=== PATIENT | female | born 1990 | race Caucasian/White ===

== ENCOUNTER 2016-04-30 05:50 | Inpatient (IN) | payer OTHER ==
[2016-04-30] MEDS ORDERED: OXYTOCIN 30 UNITS/500 ML NS 30 UNIT in SALINE 1 500ML.BAG IV SCH ×2 (06:10→14:30)
[2016-04-30] MEDS ORDERED: OXYTOCIN 10 UNIT/ML 1 ML VIAL IM PRN (06:10)
[2016-04-30] MEDS ORDERED: LIDOCAINE 1% (PF) 10 MG/ML (30 ML SDV) SQ PRN (06:10)
[2016-04-30] MEDS ORDERED: CARBOPROST TROMETHAMINE 250 MCG/ML 1 ML AMP IM PRN (06:10)
[2016-04-30] MEDS ORDERED: METHYLERGONOVINE 0.2 MG/ML 1 ML AMP IM PRN (06:10)
[2016-04-30] MEDS ORDERED: TERBUTALINE 1 MG/ML VIAL SQ PRN (06:10)
[2016-04-30 06:22] LABS: Basophils % (A) 1 %; CH 29.8; CHCM 33.4; Eosinophils # (A) 0.1 k/uL (0-0.7); Eosinophils % (A) 2 %; HCT 28.3 % (34.0-46.0); HDW 3.66; HGB 9.4 gm/dL (11.4-16.0); Hypochromasia Slight; Luc # (Auto) 0.18; Luc % (Auto) 3; Lymphocytes # (A) 1.2 k/uL (1.0-4.8); Lymphocytes % (A) 20 %; MCH 29.7 pg (25.0-35.0); MCHC 33.2 g/dL (31.0-37.0); Monocytes # (A) 0.3 k/uL (0-1.0); Monocytes % (A) 6 %; Neutrophils % (A) 69 %; Poikilocytosis Slight; RBC 3.16 m/uL (3.80-5.40); RDW 14.9 % (11.5-15.5); WBC 5.8 k/uL (3.8-10.6); WBC (Perox) 6.07
[2016-04-30 06:26] VITALS: BMI 29.8
[2016-04-30 06:26] LABS: MCV 89.6 fL (80.0-100.0)
[2016-04-30] MEDS: LACTATED RINGERS 1,000 ML IV SCH ×3 (06:41→13:08)
[2016-04-30] MEDS ORDERED: BUTORPHANOL 1 MG/ML 1 ML VIAL IV PRN (08:52)
[2016-04-30] MEDS ORDERED: fentaNYL (PF) 50 MCG/ML 5 ML AMP ONE (12:38)
[2016-04-30] MEDS ORDERED: BUPIVACAINE (PF) 0.25% 30 ML VIAL ONE (12:38)
[2016-04-30] MEDS ORDERED: SODIUM CHLORIDE 0.9% 100 ML BAG ONE (12:38)
[2016-04-30] MEDS ORDERED: ZOLPIDEM 5 MG TAB PO PRN (14:18)
[2016-04-30] MEDS ORDERED: SIMETHICONE 80 MG CHEWABLE PO PRN (14:18)
[2016-04-30] MEDS ORDERED: HYDROCORTISONE 2.5% RECTAL CREAM 30 GM TUBE RECTAL PRN (14:18)
[2016-04-30] MEDS ORDERED: diphenhydrAMINE 25 MG CAP PO PRN (14:18)
[2016-04-30] MEDS ORDERED: diphenhydrAMINE 50 MG CAP PO PRN (14:18)
[2016-04-30] MEDS ORDERED: LANOLIN CREAM 5 GM TUBE TOPICAL PRN (14:18)
[2016-04-30] MEDS ORDERED: Acetaminophen-Codeine 300-30mg TAB PO PRN ×2 (14:18)
[2016-04-30] MEDS ORDERED: diphenhydrAMINE 50 MG/ML 1 ML VIAL IVP PRN ×2 (14:18)
[2016-04-30] MEDS ORDERED: WITCH HAZEL 1 EACH MED..PAD TOPICAL PRN (14:18)
[2016-04-30] MEDS ORDERED: BENZOCAINE/MENTHOL SPRAY 1 GM/SPRAY AEROSOL TOPICAL PRN (14:18)
[2016-04-30] MEDS: IBUPROFEN 600 MG TAB PO PRN (16:45)
[2016-04-30] MEDS: SENNOSIDES-DOCUSATE SODIUM 1 EACH TAB PO SCH (19:45)
[2016-04-30] MEDS: ACETAMINOPHEN TAB 325 MG TAB PO PRN (21:14)
[2016-05-01] MEDS: IBUPROFEN 600 MG TAB PO PRN ×3 (00:05→13:33)
[2016-05-01] MEDS: ACETAMINOPHEN TAB 325 MG TAB PO PRN (04:10)
--- NOTE | 2016-05-01 07:50 | P.DS ---
Providers Date of admission: 04/30/16 05:50 Expected date of discharge: 05/01/16 Attending physician: Patricia Ervin Primary care physician: Stated None - Discharge Diagnosis(es) (1) Status post vacuum-assisted vaginal delivery Current Visit: Yes Status: Acute Hospital Course: Patient presented for induction of labor. She underwent a vacuum assisted vaginal delivery. Her pp course was uncomplicated and she will be discharged home PPD #1 in stable condition to follow up with me in 6 weeks. Plan - Discharge Summary New Discharge Prescriptions: Ibuprofen [Motrin] 600 mg PO Q6HR PRN #30 tab PRN Reason: Mild Pain Or Fever >= 100.5 Discharge Medication List Ibuprofen [Motrin] 600 mg PO Q6HR PRN #30 tab 05/01/16 [Rx] Follow up Appointment(s)/Referral(s): Patricia Ervin DO [Doctor of Osteopathic Medicine] - 6 Weeks Discharge Disposition: HOME SELF-CARE
[2016-05-01] MEDS: SENNOSIDES-DOCUSATE SODIUM 1 EACH TAB PO SCH (08:21)
[2016-05-01 12:01] VITALS: BP 119/55; PULSE 73; RESP 16; TEMP 98.1
--- NOTE | 2016-05-14 08:53 | P.HPOB ---
History of Present Illness H&P Date: 05/28/16 Chief Complaint: Induction of labor 26-year-old presents at 39 weeks and 2 days for induction of labor. Her cervix is 2 cm dilated, 70% effaced, -2 station. She is oliverio irregularly. heart tones 130 540 with moderate variability and reactive. Review of Systems All systems: negative Constitutional: Denies chills, Denies fever Eyes: denies blurred vision, denies pain Ears, nose, mouth and throat: Denies headache, Denies sore throat Cardiovascular: Denies chest pain, Denies shortness of breath Respiratory: Denies cough Gastrointestinal: Denies abdominal pain, Denies diarrhea, Denies nausea, Denies vomiting Genitourinary: Denies dysuria, Denies hematuria Musculoskeletal: Denies myalgias Integumentary: Denies pruritus, Denies rash Neurological: Denies numbness, Denies weakness Psychiatric: Denies anxiety, Denies depression Endocrine: Denies fatigue, Denies weight change Past Medical History Past Medical History: No Reported History History of Any Multi-Drug Resistant Organisms: None Reported Additional Past Surgical History / Comment(s): SKIN GRAFT RH, D&C Past Anesthesia/Blood Transfusion Reactions: No Reported Reaction Past Psychological History: No Psychological Hx Reported Smoking Status: Current every day smoker Past Alcohol Use History: None Reported Past Drug Use History: None Reported Additional Drug Use History / Comment(s): pt states she smokes 5 cigarettes a day - Past Family History Father Family Medical History: No Reported History Medications and Allergies Allergies Allergy/AdvReac Type Severity Reaction Status Date / Time codeine Allergy Rash/Hives Verified 04/30/16 06:09 Exam Osteopathic Statement: *. No significant issues noted on an osteopathic structural exam other than those noted in the History and Physical/Consult. Heart: Regular rate and rhythm Lungs: Clear to auscultation bilaterally Abdomen: Soft, nontender Extremities: Negative Homans sign Results Result Diagrams: 04/30/16 06:15 Assessment and Plan (1) Normal labor Status: Acute Plan: 1. Amniotomy and Pitocin to induce labor. 2. Anticipate normal vaginal delivery
--- NOTE | 2016-05-14 08:56 | P.PROBDLV ---
Vaginal Delivery Note - . Vaginal Delivery Note: 26-year-old presented at 39 weeks 2 days for induction of labor. Her cervix was 2 cm dilated, 70% effaced, -2 station. She is oliverio irregularly. heart tones 100 4145 with moderate variability and reactive. Amniotomy was performed at 8 AM, clear fluid noted. Pitocin was also started. She progressed to complete at 1352 and started to push. heart tones went down to the 60s. Position of the baby's head was verified and vacuum was applied after informed consent was obtained. There is one pull and no pop offs. Infant's head delivered OA, anterior shoulder delivered gentle downward traction followed by posterior shoulder and rest of body at 1402. was placed on mother's abdomen, Apgars 9, 9, weight 7 pounds 4.4 ounces. Placenta delivered spontaneously, intact with three-vessel cord at 1404. Vagina, cervix, and perineum were inspected. No lacerations noted. Estimated blood loss 150 mL.
--- NOTE | 2016-05-18 13:13 | CDI ---
In responding to this query, please exercise your independent professional judgment. The [facility] Coding Staff and Clinical Documentation Specialists appreciate your assistance in clarifying documentation, maintaining compliance with coding guidelines, accurately documenting patients condition and capturing severity of illness. The fact that a question is asked does not imply that any particular answer is desired or expected. Communication forms are a method of clarifying documentation and are not made part of the Legal Health Record. Thank you in advance for your clarification. Last Revision, January 2015 Elana Johnson [address] [facility] [place] [address] Documentation Clarification Form Date: 05/18/2016 1:05:00 PM From: Saima Anusha Phone: Admit Date: 04/30/2016 5:50:00 AM Patient Name: Keara Cast Visit Number: [id number] Discharge Date: Dr. Patricia Ervin Delivery using a vacuum is documented in the delivery note and in the discharge summary. Patient history/risk factors: Patient presented at 39 weeks and 2 days for induction of labor. Clinical Indicators: Cervix is 2 cm dilated, 70% effaced, -2 station and oliverio irregularly. In your professional opinion, can you please clarify the reason that vacuum assistance was needed? heart tones were decelerating and the baby needed to be delivered quickly. The head was at +2 station and it was deemed appropriate to use a vacuum for an operative delivery. Please document in your progress notes and discharge summary in order to capture severity of illness and risk of mortality. Include clinical findings that support your diagnosis. FYI: Press F11 to launch patient chart. Place X here if this finding has no clinical significance, is not applicable or if you are not able to provide any additional documentation. MTDD
--- NOTE | 2016-06-09 11:28 | CDI ---
In responding to this query, please exercise your independent professional judgment. The [facility] Coding Staff and Clinical Documentation Specialists appreciate your assistance in clarifying documentation, maintaining compliance with coding guidelines, accurately documenting patients condition and capturing severity of illness. The fact that a question is asked does not imply that any particular answer is desired or expected. Communication forms are a method of clarifying documentation and are not made part of the Legal Health Record. Thank you in advance for your clarification. Last Revision, January 2015 Elanajett Johnson [address] [facility] [place] [address] Documentation Clarification Form Date: 05/18/2016 1:05:00 PM From: Saima Anusha Phone: Admit Date: 04/30/2016 5:50:00 AM Patient Name: Keara Cast Visit Number: [id number] Discharge Date: Dr. Patricia Ervin Thank you for signing the first query. Please document a response prior to signing the query. Delivery using a vacuum is documented in the delivery note and in the discharge summary. Patient history/risk factors: Patient presented at 39 weeks and 2 days for induction of labor. Clinical Indicators: Cervix is 2 cm dilated, 70% effaced, -2 station and oliverio irregularly. In your professional opinion, can you please clarify the reason that vacuum assistance was needed? Other Unable to determine Please document in your progress notes and discharge summary in order to capture severity of illness and risk of mortality. Include clinical findings that support your diagnosis. FYI: Press F11 to launch patient chart. Place X here if this finding has no clinical significance, is not applicable or if you are not able to provide any additional documentation. LIZ
--- NOTE | 2016-06-10 08:13 | CDI ---
In responding to this query, please exercise your independent professional judgment. The [facility] Coding Staff and Clinical Documentation Specialists appreciate your assistance in clarifying documentation, maintaining compliance with coding guidelines, accurately documenting patients condition and capturing severity of illness. The fact that a question is asked does not imply that any particular answer is desired or expected. Communication forms are a method of clarifying documentation and are not made part of the Legal Health Record. Thank you in advance for your clarification. Last Revision, January 2015 Elana Johnson [address] [facility] [place] [address] Documentation Clarification Form Date: 05/18/2016 1:05:00 PM From: Saima Anusha Phone: Admit Date: 04/30/2016 5:50:00 AM Patient Name: Keara Cast Visit Number: [id number] Discharge Date: Dr. Patricia Ervin Delivery using a vacuum is documented in the delivery note and in the discharge summary. Patient history/risk factors: Patient presented at 39 weeks and 2 days for induction of labor. Clinical Indicators: Cervix is 2 cm dilated, 70% effaced, -2 station and oliverio irregularly. In your professional opinion, can you please clarify the reason that vacuum assistance was needed? Other- Its clearly documented in the delivery note that the heart tones dropped down to the 60's. The baby was showing signs of distress, so a vacuum was used to assist with delivery. Unable to determine Please document in your progress notes and discharge summary in order to capture severity of illness and risk of mortality. Include clinical findings that support your diagnosis. FYI: Press F11 to launch patient chart. Place X here if this finding has no clinical significance, is not applicable or if you are not able to provide any additional documentation. LIZ
== END 2016-05-01 14:35 | disposition home or self-care (01) | DRG 775 ==
LOC: 4FBP 05:50
PROVIDERS: ADMIT Obstetrics & Gynecology; ATTEND Obstetrics & Gynecology
PROC: 10D07Z6 Extraction of Products of Conception, Vacuum, Via Natural or Artificial Opening (ICD-10-PCS; principal; 2016-04-30)
PROC: 3E033VJ Introduction of Other Hormone into Peripheral Vein, Percutaneous Approach (ICD-10-PCS; 2016-04-30)
PROC: 10907ZC Drainage of Amniotic Fluid, Therapeutic from Products of Conception, Via Natural or Artificial Opening (ICD-10-PCS; 2016-04-30)
DX: O99.334 Smoking (tobacco) complicating childbirth (principal); F17.200 Nicotine dependence, unspecified, uncomplicated; O76 Abnormality in fetal heart rate and rhythm complicating labor and delivery; Z37.0 Single live birth; Z3A.39 39 weeks gestation of pregnancy
CPT/HCPCS: 85025; 88307

== ENCOUNTER 2016-11-24 16:40 | Emergency (ER) | payer OTHER ==
[2016-11-24] MEDS ORDERED: ONDANSETRON 4 MG/2 ML VIAL IVP STA (17:26)
[2016-11-24] MEDS ORDERED: SODIUM CHLORIDE 0.9% 500 ML IV STA (17:26)
[2016-11-24] MEDS ORDERED: RX INFO: IV CONTRAST WAS GIVEN 1 EACH MISC MISCELLANE PRN (17:26)
[2016-11-24] MEDS ORDERED: HYDROcodone/APAP 5-325MG 1 EACH TAB PO STA (17:27)
--- NOTE | 2016-11-24 17:31 | ED ---
Abdominal Pain HPI - General Chief Complaint: Abdominal Pain Stated Complaint: kidney pain Time Seen by Provider: 11/24/16 17:20 Source: patient, RN notes reviewed Mode of arrival: ambulatory Limitations: no limitations - History of Present Illness Initial Comments: This a 26-year-old female presents emergency Department chief complaint of right flank pain. Patient states she was sitting in the tub with her daughter in which she slipped falling onto her right side. Patient complains of right- sided pain from her right lower ribs to her hip on the right. Patient states that it is severe pain and radiates across her abdomen. Patient feels nauseated from the pain. The patient denies fever, chills, diarrhea, constipation, chest pain, shortness breath, hematuria. Patient states she is able to ambulate with no difficulty. Patient denies any head injury no LOC. - Related Data Previous Rx's Medication Instructions Recorded Hydrocodone/Acetaminophen [[place] 1 tab PO Q6HR PRN #15 tab 11/24/16 5-325] Allergies Allergy/AdvReac Type Severity Reaction Status Date / Time codeine Allergy Rash/Hives Verified 11/24/16 17:30 Review of Systems ROS Statement: Those systems with pertinent positive or pertinent negative responses have been documented in the HPI. ROS Other: All systems not noted in ROS Statement are negative. Past Medical History Past Medical History: No Reported History History of Any Multi-Drug Resistant Organisms: None Reported Additional Past Surgical History / Comment(s): SKIN GRAFT RH, D&C Past Anesthesia/Blood Transfusion Reactions: No Reported Reaction Past Psychological History: No Psychological Hx Reported Smoking Status: Current every day smoker Past Alcohol Use History: None Reported Past Drug Use History: None Reported - Past Family History Father Family Medical History: No Reported History General Exam Limitations: no limitations General appearance: alert, in no apparent distress Head exam: Present: atraumatic, normocephalic, normal inspection Eye exam: Present: normal appearance, PERRL, EOMI. Absent: scleral icterus, conjunctival injection, periorbital swelling Neck exam: Present: normal inspection, full ROM. Absent: tenderness, meningismus, lymphadenopathy Respiratory exam: Present: normal lung sounds bilaterally, chest wall tenderness (Right lower ribs). Absent: respiratory distress, wheezes, rales, rhonchi, stridor Cardiovascular Exam: Present: regular rate, normal rhythm, normal heart sounds. Absent: systolic murmur, diastolic murmur, rubs, gallop, clicks GI/Abdominal exam: Present: soft, tenderness (Moderate right-sided abdominal tenderness), normal bowel sounds. Absent: distended, guarding, rebound, rigid Back exam: Present: full ROM, CVA tenderness (R). Absent: tenderness, CVA tenderness (L) Neurological exam: Present: alert, oriented X3, CN II-XII intact, reflexes normal. Absent: motor sensory deficit Skin exam: Present: warm, dry, intact, normal color. Absent: rash Course Vital Signs 11/24/16 17:06 Temperature 97.3 F L Pulse Rate 68 Respiratory 17 Rate Blood Pressure 108/68 O2 Sat by Pulse 100 Oximetry Medical Decision Making - Medical Decision Making 26-year-old female presented emergency department for right-sided pain after a fall. Patient's CT does not show any acute organ or internal damage. Patient most likely just has a contusion. Patient be given pain medication and advised follow-up within 24 hours for recheck return parameters were discussed. - Lab Data Result diagrams: 11/24/16 17:45 11/24/16 17:45 Lab Results 11/24/16 11/24/16 11/24/16 Range/Units 17:45 17:45 17:45 WBC 5.8 (3.8-10.6) k/uL RBC 4.23 (3.80-5.40) m/uL Hgb 14.3 (11.4-16.0) gm/dL Hct 39.8 (34.0-46.0) % MCV 94.0 (80.0-100.0) fL MCH 33.7 (25.0-35.0) pg MCHC 35.8 (31.0-37.0) g/dL RDW 13.2 (11.5-15.5) % Plt Count 183 (150-450) k/uL Neutrophils % 49 % Lymphocytes % 36 % Monocytes % 6 % Eosinophils % 5 % Basophils % 1 % Neutrophils # 2.8 (1.3-7.7) k/uL Lymphocytes # 2.1 (1.0-4.8) k/uL Monocytes # 0.4 (0-1.0) k/uL Eosinophils # 0.3 (0-0.7) k/uL Basophils # 0.1 (0-0.2) k/uL PT (9.0-12.0) sec INR (<1.2) APTT (22.0-30.0) sec Sodium 140 (137-145) mmol/L Potassium 4.3 (3.5-5.1) mmol/L Chloride 110 H (98-107) mmol/L Carbon Dioxide 23 (22-30) mmol/L Anion Gap 7 mmol/L BUN 10 (7-17) mg/dL Creatinine 0.70 (0.52-1.04) mg/dL Est GFR (MDRD) Af Amer >60 (>60 ml/min/1.73 sqM) Est GFR (MDRD) Non-Af >60 (>60 ml/min/1.73 sqM) Glucose 77 (74-99) mg/dL Calcium 9.0 (8.4-10.2) mg/dL Total Bilirubin 0.3 (0.2-1.3) mg/dL AST 17 (14-36) U/L ALT 27 (9-52) U/L Alkaline Phosphatase 47 (38-126) U/L Total Protein 5.8 L (6.3-8.2) g/dL Albumin 3.7 (3.5-5.0) g/dL Amylase 60 (30-110) U/L Lipase 93 (23-300) U/L Urine Color Urine Appearance (Clear) Urine pH (5.0-8.0) Ur Specific [place] (1.001-1.035) Urine Protein (Negative) Urine Glucose (UA) (Negative) Urine Ketones (Negative) Urine Blood (Negative) Urine Nitrite (Negative) Urine Bilirubin (Negative) Urine Urobilinogen (<2.0) mg/dL Ur Leukocyte Esterase (Negative) Urine RBC (0-5) /hpf Ur Squamous Epith Cells (0-4) /hpf Amorphous Sediment (None) /hpf Urine Mucus (None) /hpf Urine HCG, Qual Not Detected (Not Detectd) 11/24/16 11/24/16 Range/Units 17:45 17:45 WBC (3.8-10.6) k/uL RBC (3.80-5.40) m/uL Hgb (11.4-16.0) gm/dL Hct (34.0-46.0) % MCV (80.0-100.0) fL MCH (25.0-35.0) pg MCHC (31.0-37.0) g/dL RDW (11.5-15.5) % Plt Count (150-450) k/uL Neutrophils % % Lymphocytes % % Monocytes % % Eosinophils % % Basophils % % Neutrophils # (1.3-7.7) k/uL Lymphocytes # (1.0-4.8) k/uL Monocytes # (0-1.0) k/uL Eosinophils # (0-0.7) k/uL Basophils # (0-0.2) k/uL PT 11.8 (9.0-12.0) sec INR 1.2 H (<1.2) APTT 25.1 (22.0-30.0) sec Sodium (137-145) mmol/L Potassium (3.5-5.1) mmol/L Chloride (98-107) mmol/L Carbon Dioxide (22-30) mmol/L Anion Gap mmol/L BUN (7-17) mg/dL Creatinine (0.52-1.04) mg/dL Est GFR (MDRD) Af Amer (>60 ml/min/1.73 sqM) Est GFR (MDRD) Non-Af (>60 ml/min/1.73 sqM) Glucose (74-99) mg/dL Calcium (8.4-10.2) mg/dL Total Bilirubin (0.2-1.3) mg/dL AST (14-36) U/L ALT (9-52) U/L Alkaline Phosphatase (38-126) U/L Total Protein (6.3-8.2) g/dL Albumin (3.5-5.0) g/dL Amylase (30-110) U/L Lipase (23-300) U/L Urine Color Yellow Urine Appearance Cloudy H (Clear) Urine pH 6.5 (5.0-8.0) Ur Specific [place] 1.014 (1.001-1.035) Urine Protein Negative (Negative) Urine Glucose (UA) Negative (Negative) Urine Ketones Negative (Negative) Urine Blood Negative (Negative) Urine Nitrite Negative (Negative) Urine Bilirubin Negative (Negative) Urine Urobilinogen <2.0 (<2.0) mg/dL Ur Leukocyte Esterase Negative (Negative) Urine RBC 1 (0-5) /hpf Ur Squamous Epith Cells 3 (0-4) /hpf Amorphous Sediment Rare H (None) /hpf Urine Mucus Rare H (None) /hpf Urine HCG, Qual (Not Detectd) Disposition Clinical Impression: Abdominal wall contusion, Fall Disposition: HOME SELF-CARE Condition: Stable Instructions: Contusion in Adults (ED) Additional Instructions: Please return to the Emergency Department if symptoms worsen or any other concerns. Prescriptions: Hydrocodone/Acetaminophen [[place] 5-325] 1 tab PO Q6HR PRN #15 tab PRN Reason: Pain Referrals: Kirit Duckworth MD [Primary Care Provider] - 1-2 days Time of Disposition: 19:15
[2016-11-24 18:03] LABS: Basophils # (A) 0.1 k/uL (0-0.2); Basophils % (A) 1 %; CH 32.9; Eosinophils # (A) 0.3 k/uL (0-0.7); Eosinophils % (A) 5 %; HCT 39.8 % (34.0-46.0); HDW 2.53; HGB 14.3 gm/dL (11.4-16.0); Luc # (Auto) 0.17; Luc % (Auto) 3; Lymphocytes # (A) 2.1 k/uL (1.0-4.8); Lymphocytes % (A) 36 %; MCH 33.7 pg (25.0-35.0); MCHC 35.8 g/dL (31.0-37.0); Mean Platelet Volume 8.4; Monocytes # (A) 0.4 k/uL (0-1.0); Monocytes % (A) 6 %; Neutrophils # (A) 2.8 k/uL (1.3-7.7); Neutrophils % (A) 49 %; RBC 4.23 m/uL (3.80-5.40); RDW 13.2 % (11.5-15.5); WBC 5.8 k/uL (3.8-10.6); WBC (Perox) 5.97
[2016-11-24 18:06] LABS: Amorphous Sediment,Urine Rare /hpf; Appearance,Urine Cloudy (Clear); Bilirubin,Urine Negative (Negative); Glucose,Urine (UA) Negative (Negative); Ketones,Urine Negative (Negative); Leukocyte Esterase,Urine Negative (Negative); Mucus,Urine Rare /hpf; Nitrite,Urine Negative (Negative); PH, Urine 6.5 (5.0-8.0); Particle Count 6061; Protein,Urine Negative (Negative); RBC,Urine 1 /hpf (0-5); Specific Gravity,Urine 1.014 (1.001-1.035); Squamous Epithelial Cell,Urine 3 /hpf (0-4); UA Billing (MACRO vs. MICRO) MICRO; Urobilinogen,Urine <2.0 mg/dL (<2.0)
[2016-11-24 18:15] LABS: INR 1.2 (<1.2); Partial Thromboplastin Time 25.1 sec (22.0-30.0); Prothrombin Time 11.8 sec (9.0-12.0)
[2016-11-24 18:20] LABS: ALT 27 U/L (9-52); AST 17 U/L (14-36); Alkaline Phosphatase 47 U/L (38-126); Amylase 60 U/L (30-110); Anion Gap 7 mmol/L; Blood Urea Nitrogen 10 mg/dL (7-17); Carbon Dioxide 23 mmol/L (22-30); Chloride 110 mmol/L (98-107); Glucose 77 mg/dL (74-99); Non-African American GFR(MDRD) >60 (>60 ml/min/1.73 sqM); Potassium 4.3 mmol/L (3.5-5.1); Sodium 140 mmol/L (137-145); Total Bilirubin 0.3 mg/dL (0.2-1.3); Total Protein 5.8 g/dL (6.3-8.2)
--- NOTE | 2016-11-24 19:04 | CT ---
EXAMINATION TYPE: CT abdomen pelvis w con DATE OF EXAM: 11/24/2016 COMPARISON: NONE HISTORY: Right sided flank pain with painful and frequent urination CT DLP: 345.2 mGycm CONTRAST: CT scan of the abdomen and pelvis is performed without Oral Contrast and with IV Contrast, patient in jected with 100 mL of Omnipaque 300. FINDINGS: LUNG BASES-: No visible nodule. No infiltrate. LIVER/GB: No calcified gallstones. No space occupying hepatic lesion. Biliary tree is of normal ca liber. PANCREAS: No inflammation. No distinct mass. SPLEEN: No splenic enlargement. No lesion seen. ADRENALS: No nodule. No thickening. KIDNEYS/BLADDER: No hydronephrosis. No nephrolithiasis. No disctinct renal mass. Urinary bladder g rossly unremarkable. BOWEL: Normal appendix. Normal bowel caliber. No inflammation. GENITAL ORGANS: Trace free fluid within the pelvis. Cervical nabothian cyst noted. Uterus and ovarie s are otherwise unremarkable. LYMPH NODES: No greater than 1cm abdominal or pelvic lymph nodes are appreciated. AORTA: No significant abnormality. OSSEOUS STRUCTURES: No significant abnormality is seen. OTHER: No significant additional abnormality is seen. IMPRESSION: 1. No significant abnormality to account for the patient's symptoms. Trace free fluid within the pelv is.
[2016-11-24 19:34] VITALS: BP 111/54; PULSE 88; RESP 18; TEMP 97.6
== END 2016-11-24 19:45 | disposition home or self-care (01) ==
LOC: EC 16:40
DX: S30.1XXA Contusion of abdominal wall, initial encounter (principal); R07.81 Pleurodynia; M25.551 Pain in right hip; F17.200 Nicotine dependence, unspecified, uncomplicated; Z88.5 Allergy status to narcotic agent; W01.0XXA Fall on same level from slipping, tripping and stumbling without subsequent striking against object, initial encounter; Y92.89 Other specified places as the place of occurrence of the external cause
CPT/HCPCS: 36415; 80053; 82150; 83690; 85025; 85610; 85730; 81001; 81025; 87086; 74177; 99284; 96374; 96361 ×2; J2405; Q9967

== ENCOUNTER → 2017-09-30 | Outpatient (CLI) | payer OTHER ==
--- NOTE | 2017-10-01 07:24 | US ---
EXAMINATION TYPE: Transabdominal DATE OF EXAM: 06/08/17 COMPARISON: 10/22/2015 CLINICAL HISTORY: Z36 confirm dates. EXAM PERFORMED: Transabdominal (TA) EXAM MEASUREMENTS: GESTATIONAL AGE / DATING Physician Established: Not yet established EDC: Dates by LMP: 9 weeks/0 days) EDC: 05/05/2018 Dates by First Scan: No previous this is first scan Dates by Current Scan for: (9 weeks/4 days) EDC: 05/01/2018 MATERNAL ANATOMY Uterus: 12.2 x 5.7 x 7.8 cm Right Ovary: 2.4 x 2.3 x 2.2 cm Left Ovary: 2.8 x 2.1 x 2.6 cm Post CDS / Adnexa: wnl Presence of free fluid: wnl Presence of corpus luteal cyst: small left cyst 1.1 x0.7 x 0.7 cm Presence of subchorionic bleed: Yes, 6 mm on image 15 near the fundus GESTATION / SURVEY CRL: 2.5 cm 9weeks/2 days) MSD: 4.08 weeks/5 days) Yolk Sac (normal less than 6mm): 4mm Heart Rate: 143pm Rhythm: Normal IUP: Live IUP Date of LMP: 07/29/2017 Beta HcG (if available): na Incidental note of moderate amount of nondependent debris scattered throughout the urinary bladder. IMPRESSION: 1. Single live intrauterine with a calculated sonographic age of 9 weeks and 4 days with es timated date of delivery of 05/01/2018, concordant with menstrual age. Additionally there is a 6 mm ve ry small subchorionic hemorrhage near the uterine fundus. 2. Incidentally noted moderate amount of nondependent debris within the urinary bladder. Correlate wi th urinalysis to evaluate for urinary tract infection.
== END | disposition home or self-care (01) ==
LOC: RADUSWWP 16:12
PROVIDERS: ATTEND Obstetrics & Gynecology
DX: O20.8 Other hemorrhage in early pregnancy (principal); Z3A.09 9 weeks gestation of pregnancy
CPT/HCPCS: 76801

== ENCOUNTER 2018-04-15 08:42 | Inpatient (IN) | payer OTHER ==
[2018-04-15] MEDS ORDERED: TERBUTALINE 1 MG/ML VIAL SQ PRN (09:04)
[2018-04-15] MEDS ORDERED: METHYLERGONOVINE 0.2 MG/ML 1 ML AMP IM PRN (09:04)
[2018-04-15] MEDS ORDERED: CARBOPROST TROMETHAMINE 250 MCG/ML 1 ML AMP IM PRN (09:04)
[2018-04-15] MEDS ORDERED: OXYTOCIN 10 UNIT/ML 1 ML VIAL IM PRN (09:04)
[2018-04-15] MEDS ORDERED: LIDOCAINE 0.5% (PF) 5 MG/ML (50 ML SDV) SQ PRN (09:04)
[2018-04-15] MEDS ORDERED: BENZOCAINE 20 % GEL 15 GM TUBE MM PRN (09:30)
[2018-04-15] MEDS ORDERED: ACETAMINOPHEN IV (For NPO) 1,000 MG in EMPTY BAG 1 BAG IVPB STA (09:30)
[2018-04-15] MEDS: LACTATED RINGERS 1,000 ML IV SCH ×2 (09:35→10:15)
[2018-04-15 09:58] LABS: Basophils % (A) 0 %; Eosinophils # (A) 0.1 k/uL (0-0.7); Eosinophils % (A) 2 %; HCT 28.5 % (34.0-46.0); HGB 9.4 gm/dL (11.4-16.0); Lymphocytes % (A) 15 %; MCH 30.3 pg (25.0-35.0); MCV 91.8 fL (80.0-100.0); Mean Platelet Volume 7.5; Monocytes # (A) 0.4 k/uL (0-1.0); Monocytes % (A) 7 %; Neutrophils % (A) 74 %; Platelet Count 142 k/uL (150-450); RDW 15.4 % (11.5-15.5); WBC 6.7 k/uL (3.8-10.6)
[2018-04-15 10:10] VITALS: BMI 28.5
[2018-04-15] MEDS ORDERED: ROPIVACAINE 5MG/ML 20ML VIAL ONE (10:22)
[2018-04-15] MEDS ORDERED: fentaNYL (PF) 50 MCG/ML 5 ML AMP ONE (10:22)
[2018-04-15] MEDS ORDERED: SODIUM CHLORIDE 0.9% 100 ML BAG ONE (10:22)
[2018-04-15] MEDS ORDERED: OXYTOCIN 30 UNITS/500 ML NS 30 UNIT in SALINE 1 500ML.BAG IV SCH (11:15)
[2018-04-15] MEDS ORDERED: OXYTOCIN 20 UNITS/1000 ML NS 1,000 ML IV SCH (15:00)
[2018-04-15] MEDS ORDERED: SIMETHICONE 80 MG CHEWABLE PO PRN (15:01)
[2018-04-15] MEDS ORDERED: LANOLIN CREAM 5 GM TUBE TOPICAL PRN (15:01)
[2018-04-15] MEDS ORDERED: diphenhydrAMINE 25 MG CAP PO PRN (15:01)
[2018-04-15] MEDS ORDERED: diphenhydrAMINE 50 MG/ML 1 ML VIAL IVP PRN ×2 (15:01)
[2018-04-15] MEDS ORDERED: diphenhydrAMINE 50 MG CAP PO PRN (15:01)
[2018-04-15] MEDS ORDERED: WITCH HAZEL 1 EACH MED..PAD TOPICAL PRN (15:01)
[2018-04-15] MEDS ORDERED: HYDROCORTISONE 2.5% RECTAL CREAM 30 GM TUBE RECTAL PRN (15:01)
[2018-04-15] MEDS ORDERED: ACETAMINOPHEN TAB 325 MG TAB PO PRN (15:01)
[2018-04-15] MEDS ORDERED: BENZOCAINE/MENTHOL SPRAY 1 GM/SPRAY AEROSOL TOPICAL PRN (15:01)
[2018-04-15] MEDS ORDERED: ZOLPIDEM 5 MG TAB PO PRN (15:01)
[2018-04-15] MEDS: IBUPROFEN 600 MG TAB PO PRN (16:47)
--- NOTE | 2018-04-15 18:39 | P.HPOB ---
History of Present Illness H&P Date: 04/15/18 Chief Complaint: SROM 28-year-old presented at 37 weeks with spontaneous rupture membranes at 8: 30 AM. Her cervix was 3 cm dilated, 70% effaced, -2 station. She is oliverio every 2-5 minutes. heart tones 130-135 with moderate variability and reactive. Review of Systems All systems: negative Constitutional: Denies chills, Denies fever Eyes: denies blurred vision, denies pain Ears, nose, mouth and throat: Denies headache, Denies sore throat Cardiovascular: Denies chest pain, Denies shortness of breath Respiratory: Denies cough Gastrointestinal: Denies abdominal pain, Denies diarrhea, Denies nausea, Denies vomiting Genitourinary: Denies dysuria, Denies hematuria Musculoskeletal: Denies myalgias Integumentary: Denies pruritus, Denies rash Neurological: Denies numbness, Denies weakness Psychiatric: Denies anxiety, Denies depression Endocrine: Denies fatigue, Denies weight change Past Medical History Past Medical History: No Reported History Additional Past Medical History / Comment(s): Obstetric history: She's had 2 previous full-term deliveries, and 3 spontaneous abortions. This is her sixth . She's had care with me since 8 weeks gestation. Blood type B positive, hepatitis B negative, rubella immune, RPR nonreactive, hepatitis B negative, HIV nonreactive. GBS negative. History of Any Multi-Drug Resistant Organisms: None Reported Additional Past Surgical History / Comment(s): SKIN GRAFT RH, D&C Past Anesthesia/Blood Transfusion Reactions: No Reported Reaction Past Psychological History: No Psychological Hx Reported Smoking Status: Current every day smoker Past Alcohol Use History: None Reported Past Drug Use History: None Reported Additional Drug Use History / Comment(s): pt states she smokes 5 cigarettes a day - Past Family History Father Family Medical History: No Reported History Medications and Allergies Home Medications Medication Instructions Recorded Confirmed Type No Known Home Medications 04/15/18 04/15/18 History Allergies Allergy/AdvReac Type Severity Reaction Status Date / Time codeine Allergy Rash/Hives Verified 04/15/18 08:51 Exam Osteopathic Statement: *. No significant issues noted on an osteopathic structural exam other than those noted in the History and Physical/Consult. Vital Signs Temp Pulse Resp BP 04/15/18 16:23 71 18 108/73 04/15/18 16:00 78 18 110/70 04/15/18 15:53 97.6 F 71 18 112/74 04/15/18 15:23 58 L 16 103/64 04/15/18 15:08 97.4 F L 62 18 110/69 04/15/18 14:53 97.9 F 62 16 109/72 04/15/18 14:38 64 16 123/68 04/15/18 14:23 97.4 F L 66 18 131/67 04/15/18 10:05 96.4 F L 62 18 128/91 Intake and Output 04/15/18 04/15/18 04/15/18 06:59 14:59 22:59 Intake Total 1000 Output Total 600 Balance 400 Intake: Intake, IV Titration 1000 Amount Lactated Ringers 1,000 ml 1000 @ 125 mls/hr IV .Q8H HARINI Rx#:[id number] Output: Urine 600 Other: # Voids 1 Weight 70.76 kg Heart: Regular rate and rhythm Lungs: Clear to auscultation bilaterally Abdomen: Soft, nontender Extremities: Negative Homans sign Results Result Diagrams: 04/15/18 09:35 Abnormal Lab Results - Last 24 Hours (Table) 04/15/18 Range/Units 09:35 RBC 3.10 L (3.80-5.40) m/uL Hgb 9.4 L (11.4-16.0) gm/dL Hct 28.5 L (34.0-46.0) % Plt Count 142 L (150-450) k/uL Assessment and Plan (1) Spontaneous rupture of membranes Current Visit: Yes Status: Acute Code(s): BQP7291 - SNOMED Code(s): 330093986 Plan: 1. Expectant management 2. Anticipate normal vaginal delivery
--- NOTE | 2018-04-15 18:41 | P.PROBDLV ---
Vaginal Delivery Note - . Vaginal Delivery Note: 28-year-old presented at 37 weeks with spontaneous rupture membranes at 8: 30 AM. Her cervix was 3 cm dilated, 70% effaced, -2 station. She is oliverio every 2-5 minutes. heart tones 130-135 with moderate variability and reactive. When she is admitted she is very uncomfortable and got an epidural. After 2 hours she only changed to 3-1/2 cm. Pitocin augmentation was started. Her cervix was completely dilated at 1408. She pushed, and delivered a viable female over intact perineum under epidural anesthesia at 1417. Head delivered OA, nuchal cord 1 easily reduced, anterior shoulder delivered gentle downward guidance followed by posterior shoulder and rest of body. Nose mouth bulb suctioned, cord clamped and cut, infant placed mother's abdomen. Apgars 9, 9, weight 5 lbs. 15 oz. Placenta delivered spontaneously, intact with three-vessel cord soon thereafter. Vagina , cervix, and perineum were inspected. No lacerations noted. Estimated blood loss 150 mL. Mother and baby in stable condition.
[2018-04-15] MEDS ORDERED: SENNOSIDES-DOCUSATE SODIUM 1 EACH TAB PO SCH (20:00)
[2018-04-15 21:24] VITALS: RESP 16
[2018-04-16] MEDS: IBUPROFEN 600 MG TAB PO PRN ×3 (01:36→15:32)
--- NOTE | 2018-04-16 11:23 | P.PNOBGVD ---
Subjective - Subjective Principal diagnosis: S/P NVD PPD #1 Interval history: Pt seen and examined. Feeling well. Denies N/V, F/C, CP, SOB and calf pain. Patient reports: Reports appetite normal, Reports voiding normally, Reports pain well controlled, Reports ambulating normally Oliver: doing well Objective - Latest Vital Signs Latest vital signs: Vital Signs Temp Pulse Resp BP 04/16/18 08:00 97.6 F 75 16 112/63 04/16/18 00:00 98 F 75 16 120/80 04/15/18 20:00 98.2 F 75 16 109/58 04/15/18 16:23 71 18 108/73 04/15/18 16:00 78 18 110/70 04/15/18 15:53 97.6 F 71 18 112/74 04/15/18 15:23 58 L 16 103/64 04/15/18 15:08 97.4 F L 62 18 110/69 04/15/18 14:53 97.9 F 62 16 109/72 04/15/18 14:38 64 16 123/68 04/15/18 14:23 97.4 F L 66 18 131/67 Intake and Output 04/15/18 04/16/18 04/16/18 22:59 06:59 14:59 Other: # Voids 1 - Exam Lungs: bilateral: normal Chest: Normal S1, Normal S2 Extremities: Present: normal Abdomen: Present: normal appearance, soft Uterus: Present: normal, firm Assessment and Plan (1) Spontaneous rupture of membranes Current Visit: Yes Status: Resolved Code(s): SYS9615 - SNOMED Code(s): 984363921 (2) Status post normal vaginal delivery Current Visit: Yes Status: Acute Code(s): EZN2828 - SNOMED Code(s): 308337680 Plan: 1. cont current care
[2018-04-16 16:29] VITALS: BP 99/56; PULSE 84; TEMP 98
== END 2018-04-16 18:35 | disposition home or self-care (01) | DRG 807 ==
LOC: 4FBP 08:42
PROVIDERS: ADMIT Obstetrics & Gynecology; ATTEND Obstetrics & Gynecology
PROC: 10E0XZZ Delivery of Products of Conception, External Approach (ICD-10-PCS; principal; 2018-04-15)
PROC: 00HU33Z Insertion of Infusion Device into Spinal Canal, Percutaneous Approach (ICD-10-PCS; 2018-04-15)
PROC: 3E0R3NZ Introduction of Analgesics, Hypnotics, Sedatives into Spinal Canal, Percutaneous Approach (ICD-10-PCS; 2018-04-15)
DX: O69.81X0 Labor and delivery complicated by cord around neck, without compression, not applicable or unspecified (principal); Z37.0 Single live birth; O99.334 Smoking (tobacco) complicating childbirth; F17.210 Nicotine dependence, cigarettes, uncomplicated; Z3A.37 37 weeks gestation of pregnancy
CPT/HCPCS: 85025; 86850; 86900; 86901; 88307

== ENCOUNTER 2019-08-30 10:40 | Emergency (ER) | payer OTHER ==
[2019-08-30 10:52] VITALS: RESP 18
[2019-08-30] MEDS ORDERED: SODIUM CHLORIDE 0.9% 1,000 ML IV ONE (11:08)
[2019-08-30 12:47] LABS: Basophils % (A) 1 %; Eosinophils # (A) 0.1 k/uL (0-0.7); Eosinophils % (A) 3 %; HCT 35.3 % (34.0-46.0); HGB 11.8 gm/dL (11.4-16.0); Lymphocytes % (A) 25 %; MCH 32.4 pg (25.0-35.0); MCHC 33.4 g/dL (31.0-37.0); MCV 97.2 fL (80.0-100.0); Mean Platelet Volume 8.3; Monocytes # (A) 0.3 k/uL (0-1.0); Monocytes % (A) 6 %; Neutrophils # (A) 2.4 k/uL (1.3-7.7); Neutrophils % (A) 62 %; Platelet Count 150 k/uL (150-450); RBC 3.63 m/uL (3.80-5.40); RDW 13.6 % (11.5-15.5); WBC 3.9 k/uL (3.8-10.6)
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
[2019-08-30 13:10] LABS: Amorphous Sediment,Urine Rare /hpf; Appearance,Urine Cloudy (Clear); Bacteria,Urine Rare /hpf; Bilirubin,Urine Negative (Negative); Blood,Urine Moderate (Negative); Color,Urine Yellow; Glucose,Urine (UA) Negative (Negative); Ketones,Urine Negative (Negative); Leukocyte Esterase,Urine Negative (Negative); Mucus,Urine Rare /hpf; Nitrite,Urine Negative (Negative); PH, Urine 7.5 (5.0-8.0); Protein,Urine Negative (Negative); RBC,Urine 1 /hpf (0-5); Specific Gravity,Urine 1.015 (1.001-1.035); Squamous Epithelial Cell,Urine 11 /hpf (0-4); Urobilinogen,Urine <2.0 mg/dL (<2.0); WBC,Urine 4 /hpf (0-5)
[2019-08-30 13:15] LABS: ALT 15 U/L (4-34); AST 19 U/L (14-36); African American GFR (CKD) >90 (>60 ml/min/1.73 sqM); Albumin 3.6 g/dL (3.5-5.0); Alkaline Phosphatase 31 U/L (38-126); Anion Gap 6 mmol/L; Blood Urea Nitrogen 7 mg/dL (7-17); Calcium 8.6 mg/dL (8.4-10.2); Carbon Dioxide 22 mmol/L (22-30); Chloride 107 mmol/L (98-107); Glucose 83 mg/dL (74-99); Non-African American GFR(CKD) >90 (>60 ml/min/1.73 sqM); Potassium 4.2 mmol/L (3.5-5.1); Sodium 135 mmol/L (137-145); Total Bilirubin 0.2 mg/dL (0.2-1.3)
--- NOTE | 2019-08-30 13:28 | US ---
EXAMINATION TYPE: Transabdominal DATE OF EXAM: 08/30/2019 1:05 PM COMPARISON: NONE CLINICAL HISTORY: pain. Vaginal bleeding x 1 day; ; smoker EXAM PERFORMED: Transabdominal (TA) EXAM MEASUREMENTS: GESTATIONAL AGE / DATING Physician Established: Not yet established Dates by LMP: (10 weeks/2 days) EDC: 03/25/2020 Dates by First Scan: No previous. Dates by Current Scan for: (8 weeks/6 days) EDC: 04/04/2020 MATERNAL ANATOMY Uterus: 11.4 x 10.1 x 9.2cm Right Ovary: 3.3 x 2.5 x 1.6cm Left Ovary: 2.5 x 1.3 x 1.6cm Post CDS:small amount of free fluid in posterior cul de sac = 1.8 x 1.2 x 0.6cm Presence of corpus luteal cyst: not seen Presence of subchorionic bleed: yes, in right upper uterus a fluid area is noted subchorionic area = 0.9 x 1.0 x 1.4cm and left upper uterus another complex fluid area is also noted subchorionically = 3 .7 x 3.4 x 3.0cm. GESTATION / SURVEY CRL: 2.2cm ( 8weeks/6 days) Yolk Sac (normal less than 6mm): 3.0mm Heart Rate: 170pm Rhythm: Normal IUP: Viable IUP Date of LMP: 06/19/2019 Beta HcG (if available): NA Single, live IUP,8 weeks/6 days, EDC: 04/04/2020, [id number]; Presence of subchorionic bleed is noted: in right upper uterus a fluid area is noted subchorionic area = 0.9 x 1.0 x 1.4cm and left upper nome roxana another complex fluid area is also noted subchorionically = 3.7 x 3.4 x 3.0cm. IMPRESSION: Single viable intrauterine with subchorionic hemorrhage noted.
[2019-08-30 13:59] VITALS: BP 94/57; PULSE 63; TEMP 96.2
== END 2019-08-30 13:57 | disposition home or self-care (01) ==
LOC: EC 10:40
DX: O20.8 Other hemorrhage in early pregnancy (principal); O99.331 Smoking (tobacco) complicating pregnancy, first trimester; Z3A.08 8 weeks gestation of pregnancy; F17.200 Nicotine dependence, unspecified, uncomplicated; Z88.5 Allergy status to narcotic agent; Z87.59 Personal history of other complications of pregnancy, childbirth and the puerperium
CPT/HCPCS: 36415; 76801; 80053; 81001; 81025; 84702; 85025; 86850; 86900; 86901; 96360; 99284

== ENCOUNTER 2020-02-01 00:41 | Inpatient (IN) | payer OTHER ==
[2020-02-01] MEDS ORDERED: MAGNESIUM SULFATE-WATER PMX 4 GM in WATER FOR INJECTION 1 100ML.BAG IVPB ONE (01:10)
[2020-02-01] MEDS ORDERED: LACTATED RINGERS 1,000 ML IV SCH (01:15)
[2020-02-01] MEDS ORDERED: MAGNESIUM SULFATE-WATER PMX 20 GM in WATER FOR INJECTION 1 500ML.BAG IV SCH (01:15)
[2020-02-01 01:29] LABS: Basophils % (A) 0 %; Eosinophils # (A) 0.1 k/uL (0-0.7); Eosinophils % (A) 1 %; HCT 29.7 % (34.0-46.0); HGB 10.4 gm/dL (11.4-16.0); Lymphocytes # (A) 1.1 k/uL (1.0-4.8); Lymphocytes % (A) 13 %; MCH 32.8 pg (25.0-35.0); MCV 93.6 fL (80.0-100.0); Monocytes # (A) 0.3 k/uL (0-1.0); Monocytes % (A) 4 %; Neutrophils # (A) 6.5 k/uL (1.3-7.7); Neutrophils % (A) 79 %; Platelet Count 163 k/uL (150-450); RBC 3.17 m/uL (3.80-5.40); RDW 14.7 % (11.5-15.5); WBC 8.2 k/uL (3.8-10.6)
[2020-02-01] MEDS ORDERED: BETAMET ACET-BETAMETH SOD PHOS 6 MG/ML MDV IM SCH (01:30)
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
[2020-02-01] MEDS ORDERED: AMPICILLIN 2,000 MG in SODIUM CHLORIDE 0.9% 100 ML IVPB ONE (02:00)
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
[2020-02-01] MEDS ORDERED: bisacodyL 10 MG SUPP RECTAL PRN (02:42)
[2020-02-01] MEDS ORDERED: ZOLPIDEM 5 MG TAB PO PRN (02:42)
[2020-02-01] MEDS ORDERED: HYDROCORTISONE 2.5% RECTAL CREAM 30 GM TUBE RECTAL PRN (02:42)
[2020-02-01] MEDS ORDERED: diphenhydrAMINE 50 MG/ML 1 ML VIAL IVP PRN (02:42)
[2020-02-01] MEDS ORDERED: SIMETHICONE 80 MG CHEWABLE PO PRN (02:42)
[2020-02-01] MEDS ORDERED: diphenhydrAMINE 25 MG CAP PO PRN (02:42)
[2020-02-01] MEDS ORDERED: ACETAMINOPHEN TAB 325 MG TAB PO PRN (02:42)
[2020-02-01] MEDS ORDERED: LANOLIN CREAM 5 GM TUBE TOPICAL PRN (02:42)
[2020-02-01] MEDS ORDERED: BENZOCAINE/MENTHOL SPRAY 1 GM/SPRAY AEROSOL TOPICAL PRN (02:42)
[2020-02-01] MEDS ORDERED: IBUPROFEN 600 MG TAB PO PRN (02:42)
[2020-02-01 02:43] LABS: Amphetamine Screen,Urine Not Detected (NotDetected); Barbiturate Screen,Urine Not Detected (NotDetected); Benzodiazepines Screen,Urine Not Detected (NotDetected); Cocaine Screen,Urine Not Detected (NotDetected); Methadone Screen, Urine Not Detected (NotDetected); Opiate Screen,Urine Not Detected (NotDetected); Oxycodone Screen, Urine Not Detected (NotDetected); Phencyclidine Screen,Urine Not Detected (NotDetected); Tricyclic Antidepressant,Urine Not Detected (NotDetected); Urn Cannabinoid Scrn Detected (NotDetected)
[2020-02-01] MEDS ORDERED: OXYTOCIN 20 UNITS/1000 ML NS 1,000 ML IV SCH (02:45)
[2020-02-01 03:49] VITALS: RESP 16
--- NOTE | 2020-02-01 06:59 | P.PN ---
Progress Note - Text Progress Note Date: 02/01/20 Post day #0. Patient is resting without complaints. Her baby is doing well but had to be transferred due to gestational age. Patient would like to be discharged to go see her baby. Vital signs are stable and she is afebrile. Uterus is firm nontender and she is having normal lochia. My impression this is a normal course. Patient's felt to be stable for discharge home follow up with Dr. Ervin and 6 weeks.
--- NOTE | 2020-02-01 07:06 | P.DS ---
Providers Date of admission: 02/01/20 01:26 Expected date of discharge: 02/01/20 Attending physician: Patricia Ervin Primary care physician: Stated None - Discharge Diagnosis(es) (1) 31 weeks gestation of Current Visit: Yes Status: Acute (2) labor Current Visit: Yes Status: Acute Hospital Course: Please see dictated H&P for intimate details of this patient's admission. Brief summary this is a pleasant 30-year-old 7 para 3 female 31-0/7 weeks gestation admitted to labor and delivery in advanced active labor. Patient quickly goes on to have a vaginal delivery viable male infant. Please see dictated delivery note. Due to gestational age, patient baby was transferred and therefore morning after delivery she wished to go home. Patient's felt be stable for discharge home follow up with Dr. Ervin and 6 weeks. Procedures: Normal spontaneous vaginal delivery Patient Condition at Discharge: Good Plan - Discharge Summary New Discharge Prescriptions: New Ibuprofen [Motrin] 600 mg PO Q6HR PRN #40 tab PRN Reason: Mild Pain Or Fever >= 100.5 No Action Pnv No.95/Ferrous Fum/Folic AC [ Multivitamin Tablet] 1 tab PO ONCE Discharge Medication List Ibuprofen [Motrin] 600 mg PO Q6HR PRN #40 tab 02/01/20 [Rx] Pnv No.95/Ferrous Fum/Folic AC [ Multivitamin Tablet] 1 tab PO ONCE 02/01/20 [History] Follow up Appointment(s)/Referral(s): Patricia Ervin DO [Doctor of Osteopathic Medicine] - 6 Weeks Patient Instructions/Handouts: Vaginal Delivery (DC) Activity/Diet/Wound Care/Special Instructions: No intercourse or anything per vagina for 6 weeks. Please call if any fever, chills, excessive vaginal bleeding, and/or abdominal pain. Discharge Disposition: HOME SELF-CARE
[2020-02-01] MEDS ORDERED: SENNOSIDES-DOCUSATE SODIUM 1 EACH TAB PO SCH (08:00)
[2020-02-01 08:04] VITALS: BP 90/53; PULSE 71; TEMP 97.9
== END 2020-02-01 09:10 | disposition home or self-care (01) | DRG 807 ==
LOC: FBPOP 00:41 → 4FBP 01:26
PROVIDERS: ADMIT Obstetrics & Gynecology; ATTEND Obstetrics & Gynecology
PROC: 10E0XZZ Delivery of Products of Conception, External Approach (ICD-10-PCS; principal; 2020-02-01)
PROC: 10907ZC Drainage of Amniotic Fluid, Therapeutic from Products of Conception, Via Natural or Artificial Opening (ICD-10-PCS; 2020-02-01)
DX: O60.14X0 Preterm labor third trimester with preterm delivery third trimester, not applicable or unspecified (principal); Z37.0 Single live birth; Z3A.31 31 weeks gestation of pregnancy; O99.334 Smoking (tobacco) complicating childbirth; F17.200 Nicotine dependence, unspecified, uncomplicated; Z79.899 Other long term (current) drug therapy; Z88.5 Allergy status to narcotic agent
CPT/HCPCS: 59025; 80306; 85025; 96365; 96367; 99215

== ENCOUNTER 2020-05-30 00:50 | Emergency (ER) | payer OTHER ==
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
[2020-05-30 02:04] LABS: Appearance,Urine Clear (Clear); Bilirubin,Urine Negative (Negative); Blood,Urine Large (Negative); Color,Urine Yellow; Glucose,Urine (UA) Negative (Negative); Ketones,Urine Negative (Negative); Leukocyte Esterase,Urine Trace (Negative); Mucus,Urine Few /hpf; Nitrite,Urine Negative (Negative); PH, Urine 5.5 (5.0-8.0); Protein,Urine Trace (Negative); RBC,Urine >182 /hpf (0-5); Specific Gravity,Urine 1.032 (1.001-1.035); Squamous Epithelial Cell,Urine 1 /hpf (0-4); WBC,Urine 4 /hpf (0-5)
--- NOTE | 2020-05-30 02:41 | US ---
EXAM: US Pelvis Transvaginal CLINICAL HISTORY: ITS.REASON US Reason: vaginal bleeding TECHNIQUE: Real-time transvaginal pelvic ultrasound with image documentation. Transvaginal imaging was used for better evaluation of the endometrium and adnexa. COMPARISON: None FINDINGS: Uterus: Measures 9.3 x 6.0 x 6.8 cm. Irregular appearing gestational sac identified within the endometrial cavity, with mean sac diameter measuring 1.52 cm. Large subchorionic hemorrhage measuring 4.4 x 1.3 x 3. 6 cm. An embryonic pole is identified. [place]-rump length measures 0.71 cm. heart rate is 105 bpm. Cervix is long and closed. Placenta/amniotic fluid: Cannot be adequately evaluated due to the early gestational age. Ovaries: The right ovary measures 2.6 x 3.6 x 2.0 cm. Corpus luteum in the right ovary. Normal color Doppler flow to the right ovary. Left ovary is not visualized due to overlying bowel gas. Other: No free fluid is identified. No adnexal mass. LMP: 03/18/2020 GA by LMP: 10 weeks 3 days BRANDYN by LMP: 12/23/2020 Average ultrasound age: 6 weeks 1 day BRANDYN by ultrasound: 01/22/2021 IMPRESSION: 1. Single intrauterine with heart rate of 105 bpm, borderline bradycardic. Large subchorionic hemorrhage measuring 4.4 x 1. 3 x 3.6 cm. 2. Discordant gestational age by LMP (10 weeks 3 days) and gestational age by ultrasound (6 weeks 1 day).
[2020-05-30 02:47] VITALS: BP 90/55; PULSE 85; RESP 16; TEMP 98.8
== END 2020-05-30 03:23 | disposition home or self-care (01) ==
LOC: EC 00:50
DX: O20.9 Hemorrhage in early pregnancy, unspecified (principal); O99.331 Smoking (tobacco) complicating pregnancy, first trimester; F17.200 Nicotine dependence, unspecified, uncomplicated; O99.341 Other mental disorders complicating pregnancy, first trimester; F41.9 Anxiety disorder, unspecified; F32.9 Major depressive disorder, single episode, unspecified; Z3A.10 10 weeks gestation of pregnancy
CPT/HCPCS: 76801; 76817; 81001; 99284

== ENCOUNTER 2020-07-18 08:39 | Emergency (ER) | payer OTHER ==
[2020-07-18] MEDS ORDERED: HYDROmorphone 0.5 MG/0.5 ML SYRINGE IVP STA (08:49)
[2020-07-18] MEDS ORDERED: SODIUM CHLORIDE 0.9% 2,000 ML IV STA (08:49)
[2020-07-18] MEDS ORDERED: KETOROLAC 15 MG/ML 1 ML VIAL IVP STA (08:49)
[2020-07-18] MEDS ORDERED: ONDANSETRON 4 MG/2 ML VIAL IVP STA (08:49)
[2020-07-18] MEDS ORDERED: ACETAMINOPHEN TAB 500 MG TAB PO STA (08:52)
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
[2020-07-18 09:48] LABS: Basophils % (A) 1 %; Eosinophils # (A) 0.1 k/uL (0-0.7); Eosinophils % (A) 2 %; HCT 34.8 % (34.0-46.0); HGB 11.6 gm/dL (11.4-16.0); Lymphocytes # (A) 0.6 k/uL (1.0-4.8); Lymphocytes % (A) 7 %; MCH 31.4 pg (25.0-35.0); MCHC 33.3 g/dL (31.0-37.0); MCV 94.3 fL (80.0-100.0); Mean Platelet Volume 7.7; Monocytes # (A) 0.6 k/uL (0-1.0); Monocytes % (A) 7 %; Neutrophils # (A) 7.3 k/uL (1.3-7.7); Neutrophils % (A) 83 %; Platelet Count 165 k/uL (150-450); RBC 3.69 m/uL (3.80-5.40); WBC 8.8 k/uL (3.8-10.6)
[2020-07-18 10:06] VITALS: RESP 16
[2020-07-18 10:11] LABS: ALT 12 U/L (4-34); AST 20 U/L (14-36); African American GFR (CKD) >90 (>60 ml/min/1.73 sqM); Albumin 3.9 g/dL (3.5-5.0); Alkaline Phosphatase 53 U/L (38-126); Anion Gap 9 mmol/L; Blood Urea Nitrogen 11 mg/dL (7-17); Calcium 8.9 mg/dL (8.4-10.2); Carbon Dioxide 22 mmol/L (22-30); Chloride 108 mmol/L (98-107); Glucose 116 mg/dL (74-99); Lipase 94 U/L (23-300); Non-African American GFR(CKD) >90 (>60 ml/min/1.73 sqM); Potassium 4.6 mmol/L (3.5-5.1); Sodium 139 mmol/L (137-145); Total Bilirubin 0.4 mg/dL (0.2-1.3); Total Protein 6.4 g/dL (6.3-8.2)
[2020-07-18 10:13] LABS: Appearance,Urine Clear (Clear); Bacteria,Urine Rare /hpf; Bilirubin,Urine Negative (Negative); Blood,Urine Negative (Negative); Color,Urine Light Yellow; Glucose,Urine (UA) Negative (Negative); Ketones,Urine Negative (Negative); Leukocyte Esterase,Urine Small (Negative); Nitrite,Urine Negative (Negative); PH, Urine 7.5 (5.0-8.0); Protein,Urine Negative (Negative); RBC,Urine <1 /hpf (0-5); Specific Gravity,Urine 1.008 (1.001-1.035); Squamous Epithelial Cell,Urine <1 /hpf (0-4); Urobilinogen,Urine <2.0 mg/dL (<2.0); WBC,Urine 20 /hpf (0-5)
[2020-07-18 10:43] VITALS: TEMP 98.3
[2020-07-18 12:01] VITALS: BP 100/62; PULSE 68
== END 2020-07-18 11:52 | disposition home or self-care (01) ==
LOC: EC 08:39
DX: N12 Tubulo-interstitial nephritis, not specified as acute or chronic (principal); N39.0 Urinary tract infection, site not specified; F41.9 Anxiety disorder, unspecified; F17.200 Nicotine dependence, unspecified, uncomplicated; F12.90 Cannabis use, unspecified, uncomplicated; B96.20 Unspecified Escherichia coli [E. coli] as the cause of diseases classified elsewhere
CPT/HCPCS: 36415; 80053; 83605; 83690; 85025; 81001; 81025; 87040; 87086; 87077; 87186; 99284; 96365; 96375 ×3; J2405; J0696; J1885; J1170

== ENCOUNTER 2020-08-13 14:12 | Emergency (ER) | payer OTHER ==
[2020-08-13 14:16] VITALS: TEMP 98.4
[2020-08-13] MEDS ORDERED: KETOROLAC 15 MG/ML 1 ML VIAL IVP STA (14:30)
[2020-08-13] MEDS ORDERED: SODIUM CHLORIDE 0.9% 1,000 ML IV STA (14:30)
[2020-08-13] MEDS ORDERED: ONDANSETRON 4 MG/2 ML VIAL IVP STA (14:30)
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
[2020-08-13 14:51] LABS: Basophils # (A) 0.1 k/uL (0-0.2); Basophils % (A) 1 %; Eosinophils # (A) 0.1 k/uL (0-0.7); Eosinophils % (A) 1 %; HCT 33.4 % (34.0-46.0); HGB 11.5 gm/dL (11.4-16.0); Lymphocytes # (A) 0.8 k/uL (1.0-4.8); Lymphocytes % (A) 9 %; MCH 31.5 pg (25.0-35.0); MCHC 34.5 g/dL (31.0-37.0); MCV 91.2 fL (80.0-100.0); Mean Platelet Volume 8.1; Monocytes # (A) 0.8 k/uL (0-1.0); Monocytes % (A) 9 %; Neutrophils # (A) 7.3 k/uL (1.3-7.7); Neutrophils % (A) 78 %; Platelet Count 131 k/uL (150-450); RBC 3.66 m/uL (3.80-5.40); RDW 14.1 % (11.5-15.5); WBC 9.4 k/uL (3.8-10.6)
[2020-08-13 14:59] LABS: ALT 10 U/L (4-34); AST 15 U/L (14-36); African American GFR (CKD) >90 (>60 ml/min/1.73 sqM); Albumin 3.7 g/dL (3.5-5.0); Alkaline Phosphatase 63 U/L (38-126); Amylase 40 U/L (30-110); Anion Gap 8 mmol/L; Blood Urea Nitrogen 9 mg/dL (7-17); Calcium 8.8 mg/dL (8.4-10.2); Carbon Dioxide 25 mmol/L (22-30); Chloride 104 mmol/L (98-107); Glucose 121 mg/dL (74-99); Lipase 30 U/L (23-300); Non-African American GFR(CKD) >90 (>60 ml/min/1.73 sqM); Potassium 3.3 mmol/L (3.5-5.1); Sodium 137 mmol/L (137-145); Total Bilirubin 0.5 mg/dL (0.2-1.3); Total Protein 6.4 g/dL (6.3-8.2)
[2020-08-13 15:08] LABS: Appearance,Urine Cloudy (Clear); Bacteria,Urine Few /hpf; Bilirubin,Urine Negative (Negative); Blood,Urine Small (Negative); Color,Urine Yellow; Glucose,Urine (UA) Negative (Negative); Ketones,Urine 1+ (Negative); Leukocyte Esterase,Urine Moderate (Negative); Mucus,Urine Moderate /hpf; Nitrite,Urine Negative (Negative); PH, Urine 5.5 (5.0-8.0); Protein,Urine 1+ (Negative); RBC,Urine 5 /hpf (0-5); Specific Gravity,Urine 1.017 (1.001-1.035); Squamous Epithelial Cell,Urine 22 /hpf (0-4); Urobilinogen,Urine <2.0 mg/dL (<2.0); WBC,Urine 34 /hpf (0-5)
[2020-08-13] MEDS ORDERED: MORPHINE SULFATE 4 MG/ML SYRINGE IVP STA (15:48)
--- NOTE | 2020-08-13 16:03 | CT ---
EXAMINATION TYPE: CT abdomen pelvis wo con DATE OF EXAM: 08/13/2020 COMPARISON: 11/24/2016 HISTORY: 30-year-old female Right flank pain. CT DLP: 287.9 mGycm. Automated exposure control for dose reduction was used. TECHNIQUE: Contiguous axial scanning of the abdomen and pelvis without IV contrast. Coronal and sagit ann marie reconstructions performed. FINDINGS: Heart normal size without pericardial effusion. Lung bases clear without pleural effusion. Spleen mildly enlarged at 14.2 cm. Noncontrast appearance of the liver, gallbladder, adrenal glands, and pancreas show no gross abnormality. Abdomen hydronephrosis. No nephrolithiasis. No suspicious calcification seen along the course of eith er ureter. No dilated small bowel, free fluid, free air. Paucity of intra-abdominal fat limits assessment for en larged abdominal and pelvic lymph nodes. No obvious lymphadenopathy. Normal appendix. Mild to moderate stool burden. No pericolonic inflammatory change. Mild circumferential bladder wall thickening. Uterus is retroverted. Both ovaries are visualized. Mil d cul-de-sac free fluid. Left pelvic phlebolith. No pelvic lymphadenopathy seen. Bones: Small inferior Schmorl's nodes lower thoracic spine and thoracolumbar junction. IMPRESSION: 1. No evident nephrolithiasis or hydronephrosis. 2. Mild splenomegaly (14.2 cm). 3. Circumferential bladder wall thickening. Correlate to exclude cystitis. 4. Retroverted uterus. Mild cul-de-sac free fluid likely physiologic.
[2020-08-13 16:11] VITALS: RESP 18
[2020-08-13] MEDS ORDERED: cefTRIAXone IN SWFI 1,000 MG/10 ML SYRINGE IVP STA (16:25)
[2020-08-13 16:44] VITALS: BP 97/54; PULSE 74
== END 2020-08-13 17:10 | disposition home or self-care (01) ==
LOC: EC 14:12
DX: N12 Tubulo-interstitial nephritis, not specified as acute or chronic (principal); F17.200 Nicotine dependence, unspecified, uncomplicated; F12.90 Cannabis use, unspecified, uncomplicated; Z87.440 Personal history of urinary (tract) infections
CPT/HCPCS: 36415; 80053; 82150; 83605; 83690; 85025; 81001; 81025; 87086; 74176; 99284; 96374; 96375 ×3; 96361; J2270; J2405; J0696; J1885